=== PATIENT | female | born 1970 | race African-American/Black ===

== ENCOUNTER 2020-11-30 20:06 | Emergency (ER) | payer OTHER ==
[~2020-11-30 20:06] MED LIST: AMLODIPINE BESY10 MG PO; B-12500 MCG PO; COLACE100 MG PO; MACROBID100 MG PO; METRONIDAZOLE500 MG PO; NAPROXEN500 MG PO; NORCO 5-325 TA1 EACH PO; ONDANSETRON HCL4 MG PO; VITAMIN D32000 UNI1 PO; ZOFRAN4 MG SL; b12 PO; vit d
[2020-11-30] MEDS ORDERED: BACTRIM DS TAB1 EACH PO (21:52)
== END 2020-11-30 22:19 | disposition home or self-care (01) ==
LOC: FER 20:06
DX: H57.89 Other specified disorders of eye and adnexa (principal); I10 Essential (primary) hypertension; Z79.899 Other long term (current) drug therapy
CPT/HCPCS: 99283